=== PATIENT | male | born 1960 | race Two or more races ===

== ENCOUNTER 2017-04-07 13:52 | Inpatient (IN) | payer MEDICARE, MEDICAID ==
[~2017-04-07] VITALS: Ht 170.2 cm; Wt 58.2 kg
--- NOTE | 2017-04-07 14:14 | NUR ---
PT TO ED FROM [facility] FOR ALTERED MENTAL STATUS-- PATIENT IS AAO3. APPEARS IN NO APPARENT DISTRESS. RESPIRATION EVEN AND UNLABORED.PATIENT DOES NOT KNOW REASON FOR BEING IN ED,. PT'S VSS.
[2017-04-07 15:10] LABS: BASOPHILS # (AUTO) 0.1 /CMM (0.0-0.2); BASOPHILS % (AUTO) 1.3 % (0.0-2.0); EOSINOPHILS # (AUTO) 0.5 /CMM (0.0-0.7); EOSINOPHILS % (AUTO) 9.2 % (0.0-6.0); HEMATOCRIT 37 % (39-51); HEMOGLOBIN 12.1 g/dL (13.5-17.5); LYMPHOCYTES # (AUTO) 1.7 /CMM (0.8-4.8); LYMPHOCYTES % (AUTO) 31.8 % (20.0-44.0); MEAN CORPUSCULAR HEMOGLOBIN 31 PG (26.0-33.0); MEAN CORPUSCULAR HGB CONC 33 g/dl (31.0-36.0); MEAN CORPUSCULAR VOLUME 93 fL (80-96); MONOCYTES # (AUTO) 0.6 /CMM (0.1-1.30); MONOCYTES % (AUTO) 10.9 % (2.0-12.0); NEUTROPHILS # (AUTO) 2.3 /CMM (1.8-8.9); NEUTROPHILS % (AUTO) 46.8 % (43.0-81.0); PLATELET COUNT (AUTO) 426 /CMM (150-450); RDW COEFFICIENT OF VARIATION 15.1 (11.5-15.0); RED BLOOD CELL COUNT(AUTO) 3.96 MIL/uL (4.5-6.0); WHITE BLOOD COUNT (AUTO) 5.2 K/uL (4.3-11.0)
[2017-04-07 15:18] LABS: CALCIUM, SERUM 7.9 mg/dL (8.5-10.1); CARBON DIOXIDE 30 mmol/L (21-32); CHLORIDE 105 mmol/L (98-107); CREATININE 0.9 mg/dL (0.6-1.3); GLUCOSE 74 mg/dL (74-106); POTASSIUM 3.6 mmol/L (3.5-5.1); SODIUM SERUM 140 mmol/L (136-145); UREA NITROGEN, BLOOD 15 mg/dL (7-18)
[2017-04-07 15:23] LABS: ALANINE AMINOTRANSFERASE 18 U/L (12-78); ALBUMIN 2.8 g/dL (3.4-5.0); ALCOHOL, BLOOD < 3 mg/dL (0-0); ALKALINE PHOSPHATASE 53 U/L (46-116); ASPARTATE AMINOTRANSFERASE 15 U/L (15-37); BILIRUBIN,DIRECT 0.1 mg/dL (0.0-0.2); BILIRUBIN,TOTAL 0.2 mg/dL (0.2-1.0)
[2017-04-07 15:24] LABS: ACETAMINOPHEN 0 ug/ml (10-30)
[2017-04-07 15:48] LABS: THYROID STIMULATING HORMONE 1.397 uIU/mL (0.358-3.74)
[2017-04-07] MEDS ORDERED: DOCU250C75 PO (16:14)
[2017-04-07] MEDS ORDERED: TEMA15CA5 PO (16:14)
[2017-04-07] MEDS ORDERED: FERR-58 PO (16:14)
[2017-04-07] MEDS ORDERED: ACET-868 PO (16:14)
[2017-04-07] MEDS ORDERED: MULT-213 PO (16:14)
[2017-04-07] MEDS ORDERED: QUET400T PO (16:14)
[2017-04-07] MEDS ORDERED: DIVA500T2 PO (16:14)
[2017-04-07] MEDS ORDERED: LORA1TAB PO (16:14)
[2017-04-07] MEDS ORDERED: ASCO-340 PO (16:14)
[2017-04-07] MEDS ORDERED: MAG30ORA PO (16:14)
[2017-04-07] MEDS ORDERED: AMLO5TAB2 PO (16:14)
[2017-04-07] MEDS ORDERED: MAGN400O6 PO (16:14)
[2017-04-07 18:00] VITALS: BP 121/69
--- NOTE | 2017-04-07 18:05 | NUR ---
REPORT GIVEN TO SUDHIR SHEPHERD FOR TELE ROOM 119
[2017-04-07 18:08] LABS: APPEARANCE,URINE Clear (CLEAR); BILIRUBIN,URINE Negative (NEGATIVE); BLOOD, URINE Trace-intact Ery/uL (NEGATIVE); COLOR,URINE Yellow (YELLOW); KETONES,URINE Negative (NEGATIVE); LEUKOCYTE ESTERASE ,URINE Negative (NEGATIVE); NITRITE, URINE Negative (NEGATIVE); PH,URINE 7.5 (5.0-8.0); PROTEIN,URINE Negative (NEGATIVE); UGLUCOSE Negative (NEGATIVE); UROBILINOGEN,URINE 0.2 EU/dL (0.2)
--- NOTE | 2017-04-07 18:15 | NUR ---
TELE1/B[employer]RUPT[employer] [place] TO TELE1 - ROOM 119#1 REPORT RECEIVED FROM ER NURSE BOGDAN FOR PT TO BE ADMITTED FOR ALTERED MENTAL STATUS UNDER THE CARE OF DR. NAGEL. PT ARRIVED VIA GURNEY AMBULATED IN HOSPITAL BED WITH STEADY GAIT. PT A/O X 1, FOLLOWS COMMAND. ON ROOM AIR SATURATING @ 100%, TELE MONITORING BOX PLACED NOTED WITH SINUS LAZARO, HR 48, ASYMPTOMATIC. IV SITE FLUSHED PATENT WITH NO S/S OF INFECTION, SL. AWAITING FOR ADMITTING ORDERS. ADMITTING PROTOCOLS INITIATED. PT REORIENTATED TO ENVIRONMENT. CL WITHIN REACHED AND SAFETY MAINTAINED. ON GOING MONITORING.
[2017-04-07 18:20] LABS: BACTERIA,URINE None seen /HPF (None Seen); SQUAMOUS EPITHELIAL CELL,UR Rare /HPF (None Seen); WBC,URINE NONE SEEN /HPF (0-3)
[2017-04-07 18:30] VITALS: BP 121/69
[2017-04-07] MEDS ORDERED: LORAZEPAM 1 MG TABLET PO PRN (18:30)
[2017-04-07] MEDS ORDERED: MAG HYDROX/AL HYDROX/SIMETH 30 ML UDC PO PRN (18:30)
[2017-04-07] MEDS ORDERED: Z GUARD REMEDY 2 OZ OINT TP PRN (18:30)
[2017-04-07] MEDS ORDERED: ONDANSETRON HCL/PF 4 MG/2 ML VIAL IVP PRN (18:30)
[2017-04-07] MEDS ORDERED: MAG HYDROX/AL HYDROX/SIMETH 30 ML UDC PO SCH (18:30)
[2017-04-07] MEDS ORDERED: ACETAMINOPHEN 325 MG TABLET PO PRN (18:30)
[2017-04-07] MEDS ORDERED: MAGNESIUM HYDROXIDE 30 ML UDC PO PRN ×2 (18:30)
[2017-04-07] MEDS ORDERED: ZOLPIDEM TARTRATE 5 MG TABLET PO PRN (18:30)
--- NOTE | 2017-04-07 19:20 | NUR ---
AUDIOMETRIST INITIAL NOTE PT RECEIVED IN NO ACUTE DISTRESS. PT IS A/O X1/2 AND CONFUSED BUT ABLE TO MAKE NEEDS KNOWN. ON RA WITH ADEQUATE SATURATION. ON TELE WITH SB 48. PT HAS A RAC 20G THAT IS CLEAN DRY AND INTACT. PT IS COMFORTABLE AND SAFETY MEASURES ARE TO BE ENSURED DURING THE SHIFT. WILL CONTINUE TO MONITOR PT FOR ANY CHANGES.
[2017-04-07 19:48] VITALS: BP 114/65
[2017-04-07 20:00] VITALS: BP 114/65
[2017-04-07] MEDS: QUETIAPINE FUMARATE 100 MG TABLET PO SCH (21:06)
[2017-04-07] MEDS: LEVOFLOXACIN (500MG) 500 MG TABLET PO SCH (21:06)
[2017-04-08] VITALS (8 sets, daily range): BP systolic 91–124; BP diastolic 50–79
--- NOTE | 2017-04-08 06:14 | NUR ---
BEE RANCHER CLOSING NOTE PT REMAINS IN NO ACUTE DISTRESS. ON RA WITH 02 SAT WNL. ALERT AND AWAKE ADN ABLE TO MAKE NEEDS KNOWN. ON TELE WITH SB 54. ALL NEEDS WERE MET. ALL MEDICATIONS WERE GIVEN ORDERED. COMFORT AND SAFETY MEASURES ENSURED DURING THE SHIFT. WILL ENDORSE CARE TO AM NURSE.
[2017-04-08 07:05] LABS: BASOPHILS # (AUTO) 0.1 /CMM (0.0-0.2); BASOPHILS % (AUTO) 0.8 % (0.0-2.0); EOSINOPHILS # (AUTO) 0.4 /CMM (0.0-0.7); EOSINOPHILS % (AUTO) 6.7 % (0.0-6.0); HEMATOCRIT 41 % (39-51); HEMOGLOBIN 13.4 g/dL (13.5-17.5); LYMPHOCYTES # (AUTO) 1.8 /CMM (0.8-4.8); LYMPHOCYTES % (AUTO) 26.6 % (20.0-44.0); MEAN CORPUSCULAR HEMOGLOBIN 31 PG (26.0-33.0); MEAN CORPUSCULAR HGB CONC 33 g/dl (31.0-36.0); MEAN CORPUSCULAR VOLUME 95 fL (80-96); MONOCYTES # (AUTO) 0.8 /CMM (0.1-1.30); MONOCYTES % (AUTO) 12.4 % (2.0-12.0); NEUTROPHILS # (AUTO) 3.5 /CMM (1.8-8.9); NEUTROPHILS % (AUTO) 53.5 % (43.0-81.0); PLATELET COUNT (AUTO) 449 /CMM (150-450); RDW COEFFICIENT OF VARIATION 16.2 (11.5-15.0); RED BLOOD CELL COUNT(AUTO) 4.35 MIL/uL (4.5-6.0); WHITE BLOOD COUNT (AUTO) 6.6 K/uL (4.3-11.0)
--- NOTE | 2017-04-08 07:10 | NUR ---
RN INITIAL NOTE PATIENT RECEIVED IN BED, RESTING COMFORTABLY. ALERT, AND ORIENTED. ABLE TO MAKE NEEDS KNOWN. SPEECH GARBLED, DIFFICULT TO UNDERSTAND. NO S/S OF PAIN OR DISCOMFORT. DENIES PAIN AT THIS TIME. SINUS RHYTHM ON TELE MONITOR. RESPIRATIONS ARE EVEN AND UNLABORED. NO S/S OF RESPIRATORY DISTRESS OR SOB. SATING WELL ON ROOM AIR. IV SITE FLUSHED, PATENT. SKIN IS WARM AND DRY TO TOUCH. SAFETY PRECAUTIONS IMPLEMENTED. BED IN LOCKED, LOW POSITION WITH TWO SIDE RAILS UP. CALL LIGHT AND BELONGINGS WITHIN EASY REACH. WILL MONITOR CLOSELY.
[2017-04-08 07:32] LABS: CALCIUM, SERUM 8.1 mg/dL (8.5-10.1); CREATININE 0.7 mg/dL (0.6-1.3); PHOSPHORUS 3.5 mg/dL (2.5-4.9); POTASSIUM 3.9 mmol/L (3.5-5.1)
[2017-04-08] MEDS: MULTIVIT, IRON, MIN NO. 8, FA 1 TAB PO SCH (08:20)
[2017-04-08] MEDS: DOCUSATE SODIUM 250 MG CAPSULE PO SCH (08:20)
[2017-04-08] MEDS: FERROUS SULFATE (325 MG) 325 MG/TAB TABLET PO SCH (08:20)
[2017-04-08] MEDS: ASCORBIC ACID 500 MG TABLET PO SCH (08:20)
[2017-04-08] MEDS: HYDROCODONE/APAP 5/325MG 1 EACH TABLET PO PRN ×2 (08:21→17:40)
[2017-04-08] MEDS: DIVALPROEX SODIUM 500 MG TABLET.DR PO SCH ×2 (08:21→17:41)
[2017-04-08] MEDS: QUETIAPINE FUMARATE 100 MG TABLET PO SCH ×2 (08:25→17:40)
[2017-04-08] MEDS: AMLODIPINE BESYLATE 5 MG TABLET PO SCH (08:28)
--- NOTE | 2017-04-08 14:00 | NUR ---
RN NOTE PATIENT TAKEN FOR CAT SCAN
--- NOTE | 2017-04-08 19:05 | NUR ---
RN MS OPENING NOTES RECEIVED REPORT FROM CLARKE Perea RN. PATIENT A/A/O X 1-2 W/ SOME CONFUSION. SKIN INTACT AND WARM TO TOUCH. RIGHT AC IV #20 CDI, SALINE LOCK. BREATHING EVEN AND UNLABORED, ON ROOM AIR. PULSES PRESENT. DENIES ANY PAIN OR DISCOMFORT @ THIS TIME. SAFETY MEASURES IN PLACE, SIDE RAILS UP, BED LOCKED, CALL LIGHT WITHIN REACH. WILL CONTINUE TO MONITOR.
--- NOTE | 2017-04-08 19:08 | NUR ---
RN CLOSING NOTE CARRIED OUT ALL MD ORDERS. PATIENT KEPT CLEAN AND DRY. SAFETY PRECAUTIONS IN PLACE AT ALL TIMES. WILL GIVE REPORT TO PM RN FOR SUZI.
[2017-04-08] MEDS: LEVOFLOXACIN (500MG) 500 MG TABLET PO SCH (19:35)
[2017-04-08] MEDS: TEMAZEPAM 15 MG CAPSULE PO SCH (22:48)
[2017-04-09 04:00] VITALS: BP 98/59
[2017-04-09 06:23] LABS: BASOPHILS # (AUTO) 0.1 /CMM (0.0-0.2); BASOPHILS % (AUTO) 0.9 % (0.0-2.0); EOSINOPHILS # (AUTO) 0.5 /CMM (0.0-0.7); EOSINOPHILS % (AUTO) 8.1 % (0.0-6.0); HEMATOCRIT 39 % (39-51); HEMOGLOBIN 12.8 g/dL (13.5-17.5); LYMPHOCYTES # (AUTO) 1.5 /CMM (0.8-4.8); LYMPHOCYTES % (AUTO) 23.1 % (20.0-44.0); MEAN CORPUSCULAR HEMOGLOBIN 31 PG (26.0-33.0); MEAN CORPUSCULAR HGB CONC 33 g/dl (31.0-36.0); MEAN CORPUSCULAR VOLUME 94 fL (80-96); MONOCYTES # (AUTO) 0.9 /CMM (0.1-1.30); MONOCYTES % (AUTO) 14.2 % (2.0-12.0); NEUTROPHILS # (AUTO) 3.5 /CMM (1.8-8.9); NEUTROPHILS % (AUTO) 53.7 % (43.0-81.0); PLATELET COUNT (AUTO) 365 /CMM (150-450); RDW COEFFICIENT OF VARIATION 15.9 (11.5-15.0); RED BLOOD CELL COUNT(AUTO) 4.11 MIL/uL (4.5-6.0); WHITE BLOOD COUNT (AUTO) 6.4 K/uL (4.3-11.0)
[2017-04-09 06:45] LABS: CALCIUM, SERUM 8.4 mg/dL (8.5-10.1); CREATININE 0.8 mg/dL (0.6-1.3); POTASSIUM 4.5 mmol/L (3.5-5.1)
--- NOTE | 2017-04-09 07:14 | NUR ---
RN MS CLOSING NOTES PATIENT AWAKE IN BED. NO ACUTE RESPIRATORY DISTRESS THROUGHOUT SHIFT, REMAINED ON ROOM AIR. NO SIGNIFICANT CHANGES DURING SHIFT. ALL DUE MEDS GIVEN AND TOLERATED. SAFETY MEASURES IN PLACE. WILL ENDORSE SUZI TO AM RN.
--- NOTE | 2017-04-09 07:15 | NUR ---
MS RN NOTE: RECEIVED PT AWAKE IN BED, TALKING TO SELF, A&OX 1-2. ON RA, RESPIRATIONS EVEN AND UNLABORED WITH NO SOB NOTED. DENIES PAIN. SKIN INTACT AND WARM TO TOUCH. RIGHT AC IV #20 CDI, SL. BED LOW, LOCKED WITH CALL LIGHT WITHIN REACH. WILL CONT TO MONITOR.
[2017-04-09 08:00] VITALS: BP 92/61
[2017-04-09] MEDS: AMLODIPINE BESYLATE 5 MG TABLET PO SCH (09:00)
[2017-04-09] MEDS: MULTIVIT, IRON, MIN NO. 8, FA 1 TAB PO SCH (09:07)
[2017-04-09] MEDS: FERROUS SULFATE (325 MG) 325 MG/TAB TABLET PO SCH (09:07)
[2017-04-09] MEDS: DIVALPROEX SODIUM 500 MG TABLET.DR PO SCH ×2 (09:07→17:21)
[2017-04-09] MEDS: QUETIAPINE FUMARATE 100 MG TABLET PO SCH ×2 (09:07→17:22)
[2017-04-09] MEDS: ASCORBIC ACID 500 MG TABLET PO SCH (09:07)
[2017-04-09] MEDS: DOCUSATE SODIUM 250 MG CAPSULE PO SCH (09:07)
--- NOTE | 2017-04-09 14:00 | NUR ---
MS RN NOTE: PATIENT REFUSED PT. EXPLAINED RISKS AND BENEFITS BUT PATIENT STILL REFUSED. ADVISED TO ASK FOR ASSISTANCE WITH AMBULATING. PATIENT MUMBLED INCOMPREHENSIBLE WORDS.
[2017-04-09 16:00] VITALS: BP 121/76
--- NOTE | 2017-04-09 16:00 | NUR ---
MS RN NOTE: ADVISED PT TO CALL FOR ASSISTANCE WITH AMBULATING. PER PATIENT, "I NEED TO USE THE BATHROOM. I CAN WALK ON MY OWN." PT DENIED DIZZINESS. STEADY GAIT NOTED. ENCOURAGED TO USE CALL LIGHT FOR ASSISTANCE WITH ADLS. WILL CONT TO MONITOR.
--- NOTE | 2017-04-09 19:05 | NUR ---
MS RN OPENING NOTES RECEIVED REPORT FROM OUSMANE SHEPHERD. PATIENT A/A/O X 1-2 W/ SOME CONFUSION, TALKING TO SELF. SKIN INTACT AND WARM TO TOUCH. BREATHING EVEN AND UNLABORED, ON ROOM AIR. PULSES PRESENT. RIGHT AC IV #20 CDI, SALINE LOCK. DENIES ANY PAIN OR DISCOMFORT @ THIS TIME. SAFETY MEASURES IN PLACE W/ SIDE RAILS UP, BED LOCKED AND IN LOWEST POSITION, CALL LIGHT WITHIN REACH. WILL CONTINUE TO MONITOR.
--- NOTE | 2017-04-09 19:19 | NUR ---
MS RN NOTE: NO ACUTE CHANGES DURING SHIFT. PT REMAINED A&OX1-2, DENIED PAIN, CONT TO TALK TO SELF. ON RA, RESPIRATIONS EVEN AND UNLABORED WITH NO SOB NOTED. RIGHT AC IV #20 CDI, SL PATENT AND INTACT. ORDERS CARRIED OUT. BED LOW, LOCKED WITH CALL LIGHT WITHIN REACH. WILL ENDORSE TO TEST CONDUCTOR NURSE FOR SUZI.
[2017-04-09 20:00] VITALS: BP_SYST 147; BP_SYST 154; BP_DIAS 64; BP_DIAS 73
[2017-04-09] MEDS: LEVOFLOXACIN (500MG) 500 MG TABLET PO SCH (20:16)
[2017-04-09] MEDS: TEMAZEPAM 15 MG CAPSULE PO SCH (21:55)
[2017-04-10 04:00] VITALS: BP 125/51
--- NOTE | 2017-04-10 07:00 | NUR ---
MS RN NOTE: RECEIVED PT AWAKE IN BED, TALKING TO SELF, A&OX 1-2, DENIES PAIN. ON RA, RESPIRATIONS EVEN AND UNLABORED WITH NO SOB NOTED. SKIN INTACT AND WARM TO TOUCH. RIGHT AC IV #20 CDI, SL. BED LOW, LOCKED WITH CALL LIGHT WITHIN REACH. WILL CONT TO MONITOR.
--- NOTE | 2017-04-10 07:10 | NUR ---
MS RN CLOSING NOTES PATIENT RESTING COMFORTABLY IN BED. NO ACUTE RESPIRATORY DISTRESS THROUGHOUT SHIFT, REMAINED ON ROOM AIR. DENIED ANY PAIN OR DISCOMFORT. NO SIGNIFICANT CHANGES DURING SHIFT. ALL DUE MEDS GIVEN. SAFETY MEASURES IN PLACE.
[2017-04-10 07:15] LABS: BASOPHILS % (AUTO) 0.6 % (0.0-2.0); EOSINOPHILS # (AUTO) 0.4 /CMM (0.0-0.7); EOSINOPHILS % (AUTO) 6.8 % (0.0-6.0); HEMATOCRIT 40 % (39-51); HEMOGLOBIN 13.4 g/dL (13.5-17.5); LYMPHOCYTES # (AUTO) 1.3 /CMM (0.8-4.8); LYMPHOCYTES % (AUTO) 20.5 % (20.0-44.0); MEAN CORPUSCULAR HEMOGLOBIN 31 PG (26.0-33.0); MEAN CORPUSCULAR HGB CONC 33 g/dl (31.0-36.0); MEAN CORPUSCULAR VOLUME 94 fL (80-96); MONOCYTES # (AUTO) 0.9 /CMM (0.1-1.30); MONOCYTES % (AUTO) 14.6 % (2.0-12.0); NEUTROPHILS # (AUTO) 3.6 /CMM (1.8-8.9); NEUTROPHILS % (AUTO) 57.5 % (43.0-81.0); PLATELET COUNT (AUTO) 368 /CMM (150-450); RDW COEFFICIENT OF VARIATION 16.3 (11.5-15.0); RED BLOOD CELL COUNT(AUTO) 4.26 MIL/uL (4.5-6.0); WHITE BLOOD COUNT (AUTO) 6.2 K/uL (4.3-11.0)
[2017-04-10 07:27] LABS: CALCIUM, SERUM 8.8 mg/dL (8.5-10.1); CREATININE 0.8 mg/dL (0.6-1.3); POTASSIUM 4.6 mmol/L (3.5-5.1)
[2017-04-10 08:00] VITALS: BP 132/69
[2017-04-10 08:42] VITALS: BP 132/69
[2017-04-10] MEDS: FERROUS SULFATE (325 MG) 325 MG/TAB TABLET PO SCH (08:42)
[2017-04-10] MEDS: AMLODIPINE BESYLATE 5 MG TABLET PO SCH (08:42)
[2017-04-10] MEDS: QUETIAPINE FUMARATE 100 MG TABLET PO SCH ×2 (08:42→16:06)
[2017-04-10] MEDS: DOCUSATE SODIUM 250 MG CAPSULE PO SCH (08:42)
[2017-04-10] MEDS: ASCORBIC ACID 500 MG TABLET PO SCH (08:43)
[2017-04-10] MEDS: MULTIVIT, IRON, MIN NO. 8, FA 1 TAB PO SCH (08:43)
[2017-04-10] MEDS: DIVALPROEX SODIUM 500 MG TABLET.DR PO SCH ×2 (08:43→16:05)
--- NOTE | 2017-04-10 09:20 | NUR ---
MS RN NOTE: PHYSICAL THERAPY AT BEDSIDE. RECOMMENDED AMBULATING WITH SUPERVISION.
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
--- NOTE | 2017-04-10 12:45 | NUR ---
MS RN NOTE: RAMY ANDERSON ORDER FOR CRISIS TEAM EVAL FOR [facility]. RENEE EXT [id number] NOTIFIED.
--- NOTE | 2017-04-10 14:00 | NUR ---
MS RN NOTE: CRISIS TEAM JUSTIN AT BEDSIDE FOR [facility] [employer].
[2017-04-10] MEDS ORDERED: LEVO750T21 PO ×2 (15:17→17:32)
--- NOTE | 2017-04-10 16:30 | NUR ---
MS RN NOTE: PT D/C TO [facility] IN STABLE CONDITION. REPORT GIVEN TO FRANTZ SHEPHERD. VS: 97.8 TEMP, 92 HR, 20 RR, 98% O2 SAT, 125/86 BP. PT UNABLE TO SIGN D/C FORMS AND BELONGINGS LIST DUE TO CONFUSION. BELONGINGS RETURNED. ORDERS CARRIED OUT. PT TAKEN VIA WHEELCHAIR WITH D/C FORMS TO [facility] FOR SUZI.
[2017-04-10] MEDS ORDERED: MULT-659 PO (17:30)
== END 2017-04-10 16:52 | DRG 193 ==
LOC: ER 13:54 → TELE1 18:02 → MEDSG1 04-08 08:49
PROVIDERS: ADMIT Family Medicine; ATTEND Family Medicine
DX: J15.9 Unspecified bacterial pneumonia (principal); G93.41 Metabolic encephalopathy; E44.0 Moderate protein-calorie malnutrition; E83.51 Hypocalcemia; F25.9 Schizoaffective disorder, unspecified; Z79.899 Other long term (current) drug therapy; I70.0 Atherosclerosis of aorta; I10 Essential (primary) hypertension; F31.9 Bipolar disorder, unspecified; Z72.0 Tobacco use; D63.8 Anemia in other chronic diseases classified elsewhere
CPT/HCPCS: 36415; 70450-TC; 71010-TC; 71250-TC; 80048-TC; 80061-TC; 80076-TC; 80164-TC; 80305; 81000-TC; 82140-TC; 83605-TC; 83735-TC; 84100-TC; 84443-TC; 85025-TC; 87040-TC; 87081-TC; 93307-TC; A4606; G0480; Z7610

== ENCOUNTER 2017-04-10 16:52 | Inpatient (IN) | payer MEDICARE, MEDICAID ==
[~2017-04-10] VITALS: Ht 162.6 cm; Wt 60.3 kg
[~2017-04-10 16:52] MED LIST: ACET-868 PO; AMLO5TAB2 PO; ASCO-340 PO; DIVA500T2 PO; DOCU250C75 PO; FERR-58 PO; LEVO750T21 PO; LORA1TAB PO; MAG30ORA PO; MAGN400O6 PO; MULT-213 PO; QUET400T PO; TEMA15CA5 PO
[2017-04-10] MEDS ORDERED: MULT-659 PO (17:30)
[2017-04-10] MEDS ORDERED: MAG HYDROX/AL HYDROX/SIMETH 30 ML UDC PO PRN ×2 (17:30→21:00)
[2017-04-10] MEDS ORDERED: MAGNESIUM HYDROXIDE 30 ML UDC PO PRN ×2 (17:30→21:00)
[2017-04-10] MEDS ORDERED: ACETAMINOPHEN 325 MG TABLET PO PRN (17:30)
[2017-04-10] MEDS ORDERED: LEVO750T21 PO (17:32)
[2017-04-10 18:46] VITALS: BP 154/77
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
--- NOTE | 2017-04-10 19:30 | NUR ---
GPS RN NOTE, RECEIVED PATIENT AWAKE AND IN BED, NO S/S OR COMPLAINTS OF PAIN AT THIS TIME. PATIENT IS DISPLAYING NO S/S OF APPARENT DISTRESS AT THIS TIME. PATIENT BREATHING IS UNLABORED WITH EQUAL RISE AND FALL OF THE CHEST. PATIENT IS ALERT AND ORIENTED X 2 ON ROOM AIR WITH A SPO2 97%. PATIENT COMPLAINT WITH MEDICATION, ANXIOUS, COOPERATIVE, GUARDED, SUSPICIOUS, RAMBLING, AND NEEDS REORIENTATION. PATIENT DENIES SUICIDE AND HOMICIDAL IDEATIONS AT THIS TIME. PATIENT ASSISTED WITH TURNING AND REPOSITIONING Q2HR AND PRN FOR COMFORT AND CIRCULATION. PATIENT HAS NO NEEDS AT THIS TIME. PATIENT EDUCATED ON THE USE OF THE CALL HILL. PATIENT BED SIDE RAILS UP X2 FOR SAFETY, BED IS LOCKED AND LOW WILL CONTINUE TO MONITOR AND MAINTAIN SAFETY.
[2017-04-10 20:00] VITALS: BP 111/76
[2017-04-11] MEDS: TEMAZEPAM 7.5 MG CAPSULE PO PRN (02:08)
--- NOTE | 2017-04-11 02:08 | NUR ---
GPS RN NOTE, PATIENT HAS A COMPLAINT OF NOT BEING ABLE TO SLEEP AND WOULD LIKE A SLEEPING AID AT THIS TIME. PATIENT VITAL SIGNS ARE STABLE. GAVE RESTORIL 7.5MG PO HS ORDERED. WILL REASSESS FOR INSOMNIA AND I WILL CONTINUE TO MONITOR THIS PATIENT.
[2017-04-11 08:00] VITALS: BP 104/79
[2017-04-11] MEDS: AMLODIPINE BESYLATE 5 MG TABLET PO SCH (09:00)
[2017-04-11] MEDS: LEVOFLOXACIN (750 MG) 750 MG TABLET PO SCH (09:50)
[2017-04-11] MEDS: FERROUS SULFATE (325 MG) 325 MG/TAB TABLET PO SCH (09:50)
[2017-04-11] MEDS: DOCUSATE SODIUM 250 MG CAPSULE PO SCH (09:50)
[2017-04-11 12:18] LABS: ALBUMIN 3.1 g/dL (3.4-5.0); BILIRUBIN,TOTAL 0.2 mg/dL (0.2-1.0); CALCIUM, SERUM 8.7 mg/dL (8.5-10.1); CREATININE 0.7 mg/dL (0.6-1.3); POTASSIUM 4.6 mmol/L (3.5-5.1); TOTAL PROTEIN, SERUM 7.8 g/dL (6.4-8.2)
[2017-04-11] MEDS: DIVALPROEX SODIUM 125 MG CAP.SPRINK PO SCH ×2 (13:05→16:14)
[2017-04-11] MEDS: QUETIAPINE FUMARATE 100 MG TABLET PO SCH ×2 (13:05→16:14)
[2017-04-11 16:18] VITALS: BP 110/69
[2017-04-11 20:00] VITALS: BP 98/54
[2017-04-12 07:53] VITALS: BP 122/79
[2017-04-12] MEDS: QUETIAPINE FUMARATE 100 MG TABLET PO SCH ×2 (09:05→16:25)
[2017-04-12] MEDS: DIVALPROEX SODIUM 125 MG CAP.SPRINK PO SCH ×3 (09:05→16:24)
[2017-04-12] MEDS: DOCUSATE SODIUM 250 MG CAPSULE PO SCH (09:05)
[2017-04-12] MEDS: LEVOFLOXACIN (750 MG) 750 MG TABLET PO SCH (09:06)
[2017-04-12] MEDS: AMLODIPINE BESYLATE 5 MG TABLET PO SCH (09:09)
[2017-04-12] MEDS: FERROUS SULFATE (325 MG) 325 MG/TAB TABLET PO SCH (09:09)
[2017-04-12 15:48] VITALS: BP 108/65
--- NOTE | 2017-04-12 20:00 | NUR ---
GPS RN NOTE: PATIENT AWAKE AND RESTING BED, NO ACUTE DISTRESS NOTED. NO S/S OR COMPLAINTS OF PAIN AT THIS TIME. BREATHING EVEN AND UNLABORED, NO SOB NOTED. PATIENT IS ALERT AND ORIENTED X 2, COMPLAINT WITH MEDICATION, COOPERATIVE, GUARDED, SUSPICIOUS, RAMBLING. PATIENT DENIES SUICIDE AND HOMICIDAL IDEATIONS AT THIS TIME. REORIENTED PATIENT NEEDED. BED LOCKED AND IN LOWEST POSITION, WILL CONTINUE TO MONITOR.
[2017-04-12 20:12] VITALS: BP 130/77
[2017-04-13 08:00] VITALS: BP 114/67
[2017-04-13] MEDS: LEVOFLOXACIN (750 MG) 750 MG TABLET PO SCH (08:52)
[2017-04-13] MEDS: DOCUSATE SODIUM 250 MG CAPSULE PO SCH (08:52)
[2017-04-13] MEDS: DIVALPROEX SODIUM 125 MG CAP.SPRINK PO SCH ×3 (08:52→16:17)
[2017-04-13] MEDS: FERROUS SULFATE (325 MG) 325 MG/TAB TABLET PO SCH (08:52)
[2017-04-13] MEDS: QUETIAPINE FUMARATE 100 MG TABLET PO SCH ×3 (08:53→21:28)
[2017-04-13] MEDS: AMLODIPINE BESYLATE 5 MG TABLET PO SCH (08:53)
[2017-04-13 16:00] VITALS: BP 101/68
--- NOTE | 2017-04-13 17:13 | NUR ---
Initial discharge plan: Pt. is a resident at [address] [place] [id number] and could return per notes from the medical floor, but SW has been contacted by [address] [id number] who were asked to evaluate the patient and provide rehabilitation before pt. returns back to the assisted living. SW will follow up with MD and will arrange for discharge.
--- NOTE | 2017-04-13 19:30 | NUR ---
GPS RN NOTE, RECEIVED PATIENT AWAKE AND IN BED, NO S/S OR COMPLAINTS OF PAIN AT THIS TIME. PATIENT IS DISPLAYING NO S/S OF APPARENT DISTRESS AT THIS TIME. PATIENT BREATHING IS UNLABORED WITH EQUAL RISE AND FALL OF THE CHEST. PATIENT IS ALERT AND ORIENTED X 2 ON ROOM AIR WITH A SPO2 99%. PATIENT COMPLAINT WITH MEDICATION, ANXIOUS, COOPERATIVE, GUARDED, SUSPICIOUS, RAMBLING AT TIMES, AND NEEDS REORIENTATION. PATIENT DENIES SUICIDE AND HOMICIDAL IDEATIONS AT THIS TIME. PATIENT ASSISTED WITH TURNING AND REPOSITIONING Q2HR AND PRN FOR COMFORT AND CIRCULATION. PATIENT HAS NO NEEDS AT THIS TIME. PATIENT EDUCATED ON THE USE OF THE CALL HILL. PATIENT BED SIDE RAILS UP X2 FOR SAFETY, BED IS LOCKED AND LOW WILL CONTINUE TO MONITOR AND MAINTAIN SAFETY.
[2017-04-13 19:37] VITALS: BP 109/64
[2017-04-14 08:00] VITALS: BP 117/70
[2017-04-14] MEDS: DIVALPROEX SODIUM 125 MG CAP.SPRINK PO SCH ×3 (08:22→16:21)
[2017-04-14] MEDS: LEVOFLOXACIN (750 MG) 750 MG TABLET PO SCH (08:22)
[2017-04-14] MEDS: DOCUSATE SODIUM 250 MG CAPSULE PO SCH (08:22)
[2017-04-14] MEDS: FERROUS SULFATE (325 MG) 325 MG/TAB TABLET PO SCH (08:22)
[2017-04-14] MEDS: AMLODIPINE BESYLATE 5 MG TABLET PO SCH (08:23)
[2017-04-14] MEDS: QUETIAPINE FUMARATE 100 MG TABLET PO SCH ×2 (08:45→20:33)
--- NOTE | 2017-04-14 15:15 | NUR ---
RN-CO: Reassessed patient if he smokes he stated " I am not a smoker."
[2017-04-14 16:00] VITALS: BP 111/63
--- NOTE | 2017-04-14 16:40 | NUR ---
SAL faxed a referral to [facility] [address] [place] [address] . will follow up Addendum: 04/15/17 at 1504 by KASH HUANG Pt. is accepted per Scott from facility
[2017-04-14 20:44] VITALS: BP 115/66
[2017-04-15 08:00] VITALS: BP 123/72
[2017-04-15] MEDS: LEVOFLOXACIN (750 MG) 750 MG TABLET PO SCH (08:38)
[2017-04-15] MEDS: FERROUS SULFATE (325 MG) 325 MG/TAB TABLET PO SCH (08:38)
[2017-04-15] MEDS: DOCUSATE SODIUM 250 MG CAPSULE PO SCH (08:38)
[2017-04-15] MEDS: DIVALPROEX SODIUM 125 MG CAP.SPRINK PO SCH ×3 (08:38→17:00)
[2017-04-15] MEDS: AMLODIPINE BESYLATE 5 MG TABLET PO SCH (08:39)
[2017-04-15] MEDS: QUETIAPINE FUMARATE 100 MG TABLET PO SCH ×2 (08:39→21:15)
[2017-04-15 16:21] VITALS: BP 110/55
[2017-04-15 20:28] VITALS: BP 117/68
[2017-04-16 08:00] VITALS: BP 111/66
[2017-04-16] MEDS: DOCUSATE SODIUM 250 MG CAPSULE PO SCH (09:19)
[2017-04-16] MEDS: LEVOFLOXACIN (750 MG) 750 MG TABLET PO SCH (09:19)
[2017-04-16] MEDS: FERROUS SULFATE (325 MG) 325 MG/TAB TABLET PO SCH (09:19)
[2017-04-16] MEDS: AMLODIPINE BESYLATE 5 MG TABLET PO SCH (09:19)
[2017-04-16] MEDS: QUETIAPINE FUMARATE 100 MG TABLET PO SCH ×2 (09:20→20:58)
[2017-04-16] MEDS: DIVALPROEX SODIUM 125 MG CAP.SPRINK PO SCH ×2 (09:20→16:11)
[2017-04-16 16:00] VITALS: BP 110/69
[2017-04-16 19:59] VITALS: BP 115/63
[2017-04-16 20:00] VITALS: BP 115/63
[2017-04-17 08:00] VITALS: BP 117/75
[2017-04-17] MEDS: FERROUS SULFATE (325 MG) 325 MG/TAB TABLET PO SCH (08:30)
[2017-04-17] MEDS: DOCUSATE SODIUM 250 MG CAPSULE PO SCH (08:30)
[2017-04-17] MEDS: DIVALPROEX SODIUM 125 MG CAP.SPRINK PO SCH ×2 (08:30→17:20)
[2017-04-17] MEDS: QUETIAPINE FUMARATE 100 MG TABLET PO SCH ×2 (08:30→20:00)
[2017-04-17] MEDS: LEVOFLOXACIN (750 MG) 750 MG TABLET PO SCH (08:30)
[2017-04-17] MEDS: AMLODIPINE BESYLATE 5 MG TABLET PO SCH (08:31)
[2017-04-17 16:00] VITALS: BP 118/60
--- NOTE | 2017-04-17 19:50 | NUR ---
GPS/RN NOTE: PATIENT UP AND GOT OUT OF HIS ROOM, LOUD, TALKS TO SELF, STARTING TO GET AGITATED. NO APPARENT DISTRESS NOTED. OFFERED HIM FOOD, TOOK HIM BACK TO HIS ROOM, HAD SOME JUICE AND SANDWICH.
[2017-04-17 20:00] VITALS: BP_SYST 125; BP_SYST 150; BP_DIAS 57; BP_DIAS 84
[2017-04-17] MEDS: LORAZEPAM 0.5 MG TABLET PO PRN (20:01)
--- NOTE | 2017-04-17 20:02 | NUR ---
GPS/RN NOTE: PATIENT STARTS GETTING AGITATED, LOUD, TALKS TO SLEF, ATIVAN 0.5 MG TAB 1 PO GIVEN.
[2017-04-18] MEDS: TEMAZEPAM 7.5 MG CAPSULE PO PRN (02:03)
[2017-04-18] MEDS ORDERED: OLANZAPINE 10 MG VIAL IM ONE ×2 (02:16→02:30)
[2017-04-18] MEDS ORDERED: LORAZEPAM INJ 2 MG/ML VIAL ONE (02:18)
[2017-04-18] MEDS ORDERED: LORAZEPAM INJ 2 MG/ML VIAL IV ONE (02:30)
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
[2017-04-18 08:00] VITALS: BP 125/74
[2017-04-18] MEDS: FERROUS SULFATE (325 MG) 325 MG/TAB TABLET PO SCH (08:39)
[2017-04-18] MEDS: LEVOFLOXACIN (750 MG) 750 MG TABLET PO SCH (08:39)
[2017-04-18] MEDS: hydrALAZINE HCL 25 MG TABLET PO PRN (08:39)
[2017-04-18] MEDS: DOCUSATE SODIUM 250 MG CAPSULE PO SCH (08:40)
[2017-04-18] MEDS: AMLODIPINE BESYLATE 5 MG TABLET PO SCH (08:40)
[2017-04-18] MEDS: DIVALPROEX SODIUM 125 MG CAP.SPRINK PO SCH ×2 (08:42→16:43)
[2017-04-18] MEDS: QUETIAPINE FUMARATE 100 MG TABLET PO SCH ×2 (08:42→21:14)
[2017-04-18 20:00] VITALS: BP 128/79
[2017-04-19 08:00] VITALS: BP 121/62
[2017-04-19] MEDS: DOCUSATE SODIUM 250 MG CAPSULE PO SCH (08:32)
[2017-04-19] MEDS: FERROUS SULFATE (325 MG) 325 MG/TAB TABLET PO SCH (08:32)
[2017-04-19] MEDS: AMLODIPINE BESYLATE 5 MG TABLET PO SCH (08:32)
[2017-04-19] MEDS: hydrALAZINE HCL 25 MG TABLET PO PRN (08:33)
[2017-04-19] MEDS: LEVOFLOXACIN (750 MG) 750 MG TABLET PO SCH (08:33)
[2017-04-19] MEDS: DIVALPROEX SODIUM 125 MG CAP.SPRINK PO SCH ×2 (08:33→16:22)
[2017-04-19] MEDS: QUETIAPINE FUMARATE 100 MG TABLET PO SCH ×2 (08:33→21:40)
[2017-04-19 16:00] VITALS: BP 132/71
[2017-04-19 20:09] VITALS: BP 111/65
--- NOTE | 2017-04-20 00:24 | NUR ---
Pt has been isolative, mentally preoccupied, guarded, suspicious, anxious, rambling at times, & with flat affect but med compliant w/o any promptings.
[2017-04-20 08:00] VITALS: BP 118/76
[2017-04-20] MEDS: DOCUSATE SODIUM 250 MG CAPSULE PO SCH (08:41)
[2017-04-20] MEDS: AMLODIPINE BESYLATE 5 MG TABLET PO SCH (08:41)
[2017-04-20] MEDS: FERROUS SULFATE (325 MG) 325 MG/TAB TABLET PO SCH (08:41)
[2017-04-20] MEDS: LORAZEPAM 0.5 MG TABLET PO PRN (08:41)
[2017-04-20] MEDS: LEVOFLOXACIN (750 MG) 750 MG TABLET PO SCH (08:41)
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
[2017-04-20] MEDS: QUETIAPINE FUMARATE 100 MG TABLET PO SCH ×2 (08:42→22:06)
[2017-04-20] MEDS: DIVALPROEX SODIUM 125 MG CAP.SPRINK PO SCH ×2 (08:47→16:15)
[2017-04-20 16:00] VITALS: BP 120/80
[2017-04-20 20:55] VITALS: BP 110/65
[2017-04-21 08:00] VITALS: BP 112/71
[2017-04-21] MEDS: DIVALPROEX SODIUM 125 MG CAP.SPRINK PO SCH (08:10)
[2017-04-21] MEDS: DOCUSATE SODIUM 250 MG CAPSULE PO SCH (08:10)
[2017-04-21] MEDS: QUETIAPINE FUMARATE 100 MG TABLET PO SCH (08:10)
[2017-04-21 08:11] VITALS: BP 121/71
[2017-04-21] MEDS: LEVOFLOXACIN (750 MG) 750 MG TABLET PO SCH (08:11)
[2017-04-21] MEDS: FERROUS SULFATE (325 MG) 325 MG/TAB TABLET PO SCH (08:11)
[2017-04-21] MEDS: AMLODIPINE BESYLATE 5 MG TABLET PO SCH (08:11)
--- NOTE | 2017-04-21 11:44 | NUR ---
Discharge note: will discharge to [facility] [address] [place] [address] . NO FAMILY to inform. Pt. is calm, cooperative, agreed with the discharge plan. Pt. denied suicidal/homicidal ideations. Discharge instructions will be provided to the accepting facility and discharge paperwork has been signed. Pt. is a smoker, hence, [facility] [address] . Pt. verbalized understanding and agreed to attend.
--- NOTE | 2017-04-21 13:00 | NUR ---
GPS/RN PATIENT CLEARED FOR DISCHARGE BY DR MOORE AND RAMY ROBERTSON, TO [facility] [address] [place] [address] . ALL DISCHARGE PAPER WORK COMPLETED AND SIGNED BY PATIENT, BELONGINGS RETURNED AND SIGNED FOR BY PATIENT. MEDICATIONS AND AFTERCARE PLAN EXPLAINED TO PATIENT, VERBALIZED UNDERSTANDING, PATIENT DENIES SI/HI/AH, PSYCHIATRIC TREATMENT PLANS MET, REPORT CALLED TO FACILITY, SPOKE WITH FLO. PATIENT HAS NOT EXHIBITED AND SIGNS OF AGGRESSION OR THREATENING BEHAVIOR TOWARDS OTHERS OR SELF. LEFT UNIT CALM, COOPERATIVE, NO DISTRESS NOTED, WITH EMT AT SIDE.
== END 2017-04-21 13:00 | DRG 885 ==
LOC: GPS 16:52
PROVIDERS: ADMIT Psychiatry & Neurology Psychiatry; ATTEND Nurse Practitioner Acute Care
DX: F25.0 Schizoaffective disorder, bipolar type (principal); G93.41 Metabolic encephalopathy; J18.9 Pneumonia, unspecified organism; E44.0 Moderate protein-calorie malnutrition; J44.0 Chronic obstructive pulmonary disease with (acute) lower respiratory infection; D64.9 Anemia, unspecified; F17.210 Nicotine dependence, cigarettes, uncomplicated; I10 Essential (primary) hypertension; D63.8 Anemia in other chronic diseases classified elsewhere; E88.09 Other disorders of plasma-protein metabolism, not elsewhere classified; Z68.22 Body mass index [BMI] 22.0-22.9, adult; Z73.6 Limitation of activities due to disability; F29 Unspecified psychosis not due to a substance or known physiological condition
CPT/HCPCS: 36415; 80053-TC; 80061-TC; 80164-TC; J2060; J3490; Z7610